=== PATIENT | female | born 1965 | race Caucasian/White ===

== ENCOUNTER → 2017-12-31 11:02 | Outpatient (CLI) | payer OTHER | END | disposition home or self-care (01) | LOC: D.MRI 11:02 | DX: M54.5 Low back pain (principal) ==

== ENCOUNTER → 2018-08-09 08:30 | Outpatient (CLI) | payer OTHER | END | disposition home or self-care (01) | LOC: D.US 08:30 | DX: E04.2 Nontoxic multinodular goiter (principal) ==

== ENCOUNTER 2018-08-25 07:29 | Outpatient (CLI) | payer OTHER ==
[~2018-08-25] VITALS: Ht 152.4 cm; Wt 106.4 kg
[2018-08-25 08:11] LABS: ANION GAP 11.4 mmol/L (8-16); CALCIUM 8.5 mg/dL (8.5-10.1); CARBON DIOXIDE 31.4 mmol/L (21.0-32.0); POTASSIUM - SERUM 4.8 mmol/L (3.5-5.1)
[2018-08-25 08:13] LABS: APTT 27.8 SECONDS (22.8-39.4); INR 0.89 (0.85-1.17); PROTIME 11.6 SECONDS (11.6-15.0)
[2018-08-25 08:30] LABS: BASOPHILS 0.1 % (0-2); EOSINOPHILS 3.1 % (0-7); HEMATOCRIT 39.5 % (36.0-48.0); HEMOGLOBIN 12.8 g/dL (12-16); IMMATURE GRANULOCYTES 0.6 % (0-5); LYMPHOCYTES 23.1 % (15-50); MCH 30.1 pg (26.0-34.0); MCHC 32.4 g/dL (31.0-37.0); MCV 92.9 fL (80.0-100.0); MEAN PLATELET VOLUME 10.4 fL (7.4-10.4); NEUTROPHILS 67.1 % (40-80); PLATELET COUNT 188 10x3/uL (130-400); RBC 4.25 10x6/uL (4.00-5.40); RDW 13.7 % (11.5-14.5); WBC 8.1 10x3/uL (4.8-10.8)
[2018-08-25] MEDS ORDERED: HYDROCODON-ACE1 EA10 PO (09:07)
[2018-08-25] MEDS ORDERED: LUNESTA1 MG PO (09:08)
[2018-08-25] MEDS ORDERED: FEXMID7.5 MG PO (09:08)
[2018-08-25] MEDS ORDERED: LISINOPRIL5 MG PO (09:09)
[2018-08-25] MEDS ORDERED: BUSPAR5 MG PO (09:09)
[2018-08-25] MEDS ORDERED: CYMBALTA20 MG PO (09:10)
[2018-08-25] MEDS ORDERED: LIPITOR20 MG PO (09:10)
[2018-08-25 09:16] VITALS: BP 116/76; Ht 152.4 cm; Wt 106.4 kg
--- NOTE | 2018-08-25 11:14 | NUR ---
1531 SEE POST VITAL SIGN PROCEDURE CHECKLIST FOR VITAL SIGN TRENDS
== END 2018-08-25 12:08 | disposition home or self-care (01) ==
LOC: D.SP 07:29 → D.OPS 10:00 → D.SP 10:00 → D.US 10:00 → D.SP 12:08
PROVIDERS: Specialist; ATTEND Family Medicine
DX: E04.1 Nontoxic single thyroid nodule (principal); Z01.812 Encounter for preprocedural laboratory examination

== ENCOUNTER 2018-09-21 08:10 | Observation (INO) | payer OTHER ==
[2018-09-20 13:04] LABS: BASOPHILS 0.2 % (0-2); EOSINOPHILS 2.3 % (0-7); HEMATOCRIT 41.4 % (36.0-48.0); HEMOGLOBIN 13.6 g/dL (12-16); IMMATURE GRANULOCYTES 0.7 % (0-5); LYMPHOCYTES 24.7 % (15-50); MCH 30.5 pg (26.0-34.0); MCHC 32.9 g/dL (31.0-37.0); MCV 92.8 fL (80.0-100.0); MEAN PLATELET VOLUME 10.4 fL (7.4-10.4); MONOCYTES 5.4 % (2-11); NEUTROPHILS 66.7 % (40-80); PLATELET COUNT 207 10x3/uL (130-400); RBC 4.46 10x6/uL (4.00-5.40); RDW 13.1 % (11.5-14.5); WBC 9.6 10x3/uL (4.8-10.8)
[2018-09-20 13:15] LABS: ANION GAP 13.4 mmol/L (8-16); CARBON DIOXIDE 31.8 mmol/L (21.0-32.0); CREATININE - SERUM 0.9 mg/dL (0.6-1.3); POTASSIUM - SERUM 4.2 mmol/L (3.5-5.1)
[~2018-09-21] VITALS: Ht 160 cm; Wt 109.1 kg
--- NOTE | ~2018-09-21 | OP ---
PATIENT NAME: BRIANNE GARZON MEDICAL RECORD: [id number] :69 LOCATION:[id number] ADMISSION DATE:09/21/18 SURGEON: OSMIN CUMMINS MD DATE OF OPERATION: 09/21/2018 PREOPERATIVE DIAGNOSES: 1. Right thyroid follicular nodule. 2. Nontoxic multinodular goiter. 3. Hypertension. 4. Hypercholesterolemia. 5. Asthma. 6. Anxiety. POSTOPERATIVE DIAGNOSES: 1. Right thyroid follicular carcinoma. 2. Nontoxic multinodular goiter. 3. Hypertension. 4. Hypercholesterolemia. 5. Asthma. 6. Anxiety. PROCEDURE: Total thyroidectomy. SURGEON: Osmin Cummins MD YARD INSPECTOR: Naomi Alonso APRN REPORT OF PROCEDURE: The patient's neck was prepped and draped in sterile fashion. A transverse incision was made through a skin crease in the inferior aspect of the neck. Electrocautery was used to dissect through the subcutaneous tissues and the platysma. We came to the strap musculature and we elevated flaps superiorly and inferiorly. We then opened up the median raphae and entered the space overlying the thyroid. The right side of the thyroid gland was approached first. We came to the superior pole vessels and these were tied off with 2-0 silk ties and clips. As we took down these vessels, we eventually went laterally to the middle thyroidal vessels and these were tied off with 3-0 silk ties. We eventually came to the inferior pole vessels, these were tied off with 2-0 silk ties and clips. We were able to mobilize the thyroid gland medially. The structures on the inferior aspect of the thyroid were taken down with either electrocautery or with ties. We eventually were able to elevate this portion of the thyroid up. We made a space overlying the trachea and tied a 2-0 silk tie on to the left side of the isthmus of the thyroid gland and transected the thyroid through the isthmus. This portion of the thyroid was sent off for frozen section and report came back that there appeared to be a follicular malignancy present. For this reason, we elected to remove the remaining portion of the thyroid on the left side. We approached the left side similarly taking down the superior pole vessels using a 2-0 silk tie and clips. We then went inferiorly towards the middle vessels, which were taken down with 3-0 silk ties and the inferior pole vessels were taken down with 2-0 silk ties and clips. We mobilized this portion of the thyroid gland medially and any of the inferior structures were taken down with clips, ties, or electrocautery. We eventually were able to remove this portion of the thyroid gland and it was sent off for permanent specimen. We inspected the area thoroughly and any vessels that were found were treated with clips. The patient had no evidence of any active bleeding at the conclusion of the case. The recurrent laryngeal nerves OPERATIVE REPORT [id number] BRIANNE GARZON were not visualized during the procedure. The patient's thyroid gland was noted to be very small during the procedure. We irrigated out the wound one last time with saline. We then packed the wound with thrombin-soaked Gelfoam. The strap musculature was reapproximated in the midline using running 2-0 Vicryls. The subcutaneous tissues and platysma were reapproximated with interrupted 3-0 Vicryls and the skin was closed with running subcutaneous 5-0 Monocryl. A total of 10 mL of 0.25% Marcaine with epinephrine was infused into the surrounding tissues and a dressing was applied. COMPLICATIONS: None. CONDITION: Stable. ANESTHESIA: General endotracheal and local. BLOOD LOSS: Minimal. TRANSINT:[id number] Voice Confirmation ID: [id number] DOCUMENT ID: [id number] OSMIN CUMMINS MD CC: MERON DOLL [id number] DICTATION DATE: 09/21/18 1235 SOCIAL MEDIA EXECUTIVE: 09/21/18 1328 ADM IN [facility] [address] [id number]
[~2018-09-21 08:10] MED LIST: ALBUTEROL SULF8.5 GM INH; BUSPAR5 MG PO; CYMBALTA20 MG PO; ESOMEPRAZOLE PO; FEXMID7.5 MG PO; FLUTICASONE PRO16 GM NASAL; HYDROCODON-ACE1 EA10 PO; LIPITOR10 MG PO; LIPITOR20 MG PO; LISINOPRIL5 MG PO; LUNESTA1 MG PO; MIRALAX17 GM PO; PROPRANOLOL PO; STOOL SOFTENER100 M1 PO; VITAMIN D5000 UNIT PO; [UNRECOGNIZED DRUG - OTHER] TD; [UNRECOGNIZED DRUG - REMARK] PO
[2018-09-21] MEDS ORDERED: VIVELLE-DOT 00.05 MG TD (08:29)
[2018-09-21 08:30] VITALS: BP 109/78; BMI 42.2
[2018-09-21] MEDS ORDERED: HYDROCODON-ACE1 EA10 PO (12:36)
[2018-09-21 13:41] VITALS: BP 149/100
[2018-09-21 15:22] VITALS: Ht 160 cm; Wt 109.1 kg
--- NOTE | 2018-09-21 20:00 | NUR ---
ASSESSMENT PER FLOWSHEET. IV PATENT RT HAND SALINE LOCK. SITE CLEAR. DRESSIG TO ANTERIOR NECK INCISION C/D/I ICE BAG TO SITE. HOB UP 35 DEGREES. TAKING CLEAR LIQUIDS PO.
[2018-09-21 21:12] VITALS: BP 108/71
--- NOTE | 2018-09-21 21:58 | NUR ---
MEDS GIVEN PER MAR. REQUESTING PAIN SHOT. DILAUDID 0.5MG IVP SLOWLY FOR INCISIONAL PAIN.
--- NOTE | 2018-09-22 | NUR ---
EYES CLOSED RESPIRATIONS WITH EASE AND UNLABORED.
--- NOTE | 2018-09-22 02:57 | NUR ---
C/O INCISIONAL PAIN RATES PAIN LEVEL #8 DILAUDID 0.5MG IVP GIVEN FOR PAIN CONTROL.
[2018-09-22 05:09] VITALS: BP 94/55
--- NOTE | 2018-09-22 05:17 | NUR ---
RESTING QUIETLY DENIES NEEDS.
--- NOTE | 2018-09-22 09:18 | NUR ---
PT LYING IN BED STATED UNABLE TO SLEEP LAST NIGHT PAIN WAS NOT CONTROLLED VERY WELL. SPOUSE IN CHAIR AT BEDSIDE, BED IN LOW POSITION, CL I N REACH, ADMINISTERED PRN PAIN MEDICATION AT 0730, PT STATES PAIN IS A LITTLE BETTER BREAKTHROUGH PAIN MEDS CAN BE GIVEN AT 0930 THIS MORNING. NO OTHER NEEDS VOICED, PT TO BE DC CONTINUE WITH PLAN OF CARE
[2018-09-22 09:35] VITALS: BP 97/66
--- NOTE | 2018-09-22 19:04 | NUR ---
HAD 2MG VIAL OF DILAUDID IN POCKET AND THOUGHT I HAD WASTED 1.5 AFTER GIVING PT .5 THIS MORNING AT 0730. PT DC AT 10 FOUND VIAL IN POCKET AND TRIED TO WASTE AT 1500 BUT PT WAS NOT IN PYXIS ANYMORE, SHOWED KEIRA DEMARCO RN VIAL AND PLACED IN SHARPS WHILE SHE WATCHED
== END 2018-09-22 10:56 | disposition home or self-care (01) ==
LOC: D.OPS 08:10 → D.SDCHOLD 12:44 → D.MS 12:44 → OBSVTIME 12:45 → D.MS 13:24
PROVIDERS: ADMIT Surgery; ATTEND Surgery
DX: C73 Malignant neoplasm of thyroid gland (principal); I10 Essential (primary) hypertension; E78.00 Pure hypercholesterolemia, unspecified; E04.2 Nontoxic multinodular goiter; J45.909 Unspecified asthma, uncomplicated; F41.9 Anxiety disorder, unspecified